=== PATIENT | female | born 1975 | race Caucasian/White ===

== ENCOUNTER 2018-06-24 05:00 | Day surgery (SDC) | payer OTHER ==
[2018-06-23 09:31] VITALS: BMI 25.0
[2018-06-24] MEDS ORDERED: ONDANSETRON 4 MG/2 ML VIAL IVPUSH PRN (12:49)
[2018-06-24] MEDS ORDERED: ACETAMINOPHEN 500 MG TABLET (FP) PO PRN (12:49)
[2018-06-24] MEDS ORDERED: oxyCODONE HCL 5 MG TABLET PO PRN (12:49)
[2018-06-24] MEDS ORDERED: LACTATED RINGERS SOLUTION 1,000 ML IV SCH (13:00)
[2018-06-24] MEDS ORDERED: LIDOCAINE HCL/PF 2% SDV 5ML VIAL ONE (13:32)
[2018-06-24] MEDS ORDERED: MIDAZOLAM HCL 2 MG/2 ML SINGLE DOSE VIAL ONE (13:33)
[2018-06-24] MEDS ORDERED: PROPOFOL 20 ML ONE (13:33)
--- NOTE | 2018-06-24 13:34 | HP ---
History & Physical Update - History History: No Change - Physical Physical: No Change - Assessment Assessment: No Change - Plan Plan: No Change
[2018-06-24] MEDS ORDERED: DEXAMETHASONE SOD PHOSPHATE 4 MG/1 ML VIAL ONE (14:11)
[2018-06-24] MEDS ORDERED: KETOROLAC TROMETHAMINE 30 MG/1 ML VIAL IVPUSH PRN (14:45)
[2018-06-24] MEDS ORDERED: KETOROLAC TROMETHAMINE 30 MG/1 ML VIAL ONE (14:46)
[2018-06-24] MEDS ORDERED: ACETAMINOPHEN INJECTION 100 ML IVPB ONE (14:54)
[2018-06-24 15:14] VITALS: TEMP 97.9
[2018-06-24 16:22] VITALS: BP 90/55; PULSE 60
--- NOTE | 2018-06-25 08:15 | OP ---
DATE OF OPERATION: 06/24/2018 PREOPERATIVE DIAGNOSES: Menorrhagia, endometrial polyp, fibroid uterus. POSTOPERATIVE DIAGNOSES: Menorrhagia, endometrial polyp, fibroid uterus. PROCEDURE: Hysteroscopy, dilatation and curettage, polypectomy and resection of submucous fibroid uterus. SURGEON: Sohail Giles MD ANESTHESIA: General. ANESTHESIOLOGIST: Carly Andersen MD ESTIMATED BLOOD LOSS: 50 mL. OPERATION: Patient was taken to the operating room. Under adequate general anesthesia in dorsal lithotomy position examination under anesthesia revealed the external genitalia to be normal. Vagina was normal. Cervix clean, no gross lesion. Uterus was enlarged, approximately 12 weeks size, anteverted. Adnexa: No masses were palpable. Then with a weighted speculum in the vagina anterior lip of the cervix was grasped with a single-tooth tenaculum. Cervix was slightly dilated with the Hegar dilator. Uterine cavity was sounded to 11 cm. Then Symphion dissector scope was introduced. Visualization of the endometrium appeared to be hypertrophic and irregular with a large polyp at the fundal area of the uterus approximately 2 to 3 cm and there was also a 2-cm submucous myoma seen at the left part of the fundus of the uterus. Both ostia were visualized. Endocervix appeared to be normal. Then with the resectoscope polyp first was removed and then the submucous myoma was resected from the fundal area. Then post visualization showed no active bleeding. Then the endometrial curetting was done. Patient tolerated procedure well. Left the OR in good condition. Shemar [id number]
--- NOTE | 2018-06-26 16:24 | PATH ---
Surgical Pathology Report Patient Name: KENDALL ALANIZ [facility]. Rec. #: [id number] /Age/Gender: 1975 (Age: 43) / F Account: [id number] Location: [facility] Taken: 06/24/2018 Received: 06/25/2018 Reported: 06/26/2018 Physicians: Sohail Giles M.D. Specimen(s) Received A: ENDOMETRIAL CURETTINGS B: ENDOMETRIUM POLYP AND FIBROID Clinical History Endometrial polyp Final Diagnosis A. ENDOMETRIAL CURETTINGS: SECRETORY ENDOMETRIUM AND SMOOTH MUSCLE BUNDLES. B. ENDOMETRIAL POLYP AND FIBROID, BIOPSY: ENDOMETRIAL POLYP, FRAGMENTS. SMOOTH MUSCLE BUNDLES, CONSISTENT WITH LEIOMYOMA. SEPARATE FRAGMENTS OF SECRETORY ENDOMETRIUM. Electronically Signed Mary Plummer M.D. Gross Description A. Received in formalin labeled "endometrial curettings," is a 2.2 x 2.0 x 0.3 cm aggregate of babcock-brown soft tissue fragments. The formalin is filtered and the specimen is entirely submitted in one cassette. B. Received in formalin labeled "endometrial polyp," is a 2.7 x 2.5 x 0.3 cm aggregate of babcock soft tissue fragments. The formalin is filtered and the specimen is entirely submitted in one cassette. 06/25/2018 saudi06/25/2018
== END 2018-06-24 16:20 | disposition home or self-care (01) ==
LOC: JASU-SURG 05:00
PROVIDERS: ATTEND Obstetrics & Gynecology
PROC: 0UDB7ZX Extraction of Endometrium, Via Natural or Artificial Opening, Diagnostic (ICD-10-PCS; 2018-06-24)
PROC: 0UJD8ZZ Inspection of Uterus and Cervix, Via Natural or Artificial Opening Endoscopic (ICD-10-PCS; 2018-06-24)
PROC: 0UB98ZZ Excision of Uterus, Via Natural or Artificial Opening Endoscopic (ICD-10-PCS; principal; 2018-06-24 12:00)
PROC: 0UB97ZX Excision of Uterus, Via Natural or Artificial Opening, Diagnostic (ICD-10-PCS; 2018-06-24 12:00)
DX: N92.0 Excessive and frequent menstruation with regular cycle (principal); D25.0 Submucous leiomyoma of uterus; N84.0 Polyp of corpus uteri
CPT/HCPCS: 84703; 88305-TC; 94760; J0131